=== PATIENT | male | born 1995 | race Caucasian/White ===

== ENCOUNTER 2016-10-24 15:32 | Emergency (ER) | payer MEDICAID, OTHER ==
[~2016-10-24] VITALS: Ht 165.1 cm; Wt 130.0 kg
[~2016-10-24 15:32] MED LIST: OMEP40CA3 PO
[2016-10-24 15:34] VITALS: Ht 165.1 cm; Wt 130.0 kg
--- NOTE | 2016-10-24 17:38 | RADRPT ---
PROCEDURE: Right knee radiographs. CLINICAL INDICATION: Trauma. Right knee pain. TECHNIQUE: Three views. Weight bearing. Frontal, lateral, and oblique. COMPARISON: No prior studies are available for comparison. FINDINGS: There is no fracture or dislocation. There is a joint effusion. The articular surfaces are intact. There is no lytic or blastic lesion. There is no radiopaque foreign body. IMPRESSION: 1. Joint effusion. 2. Otherwise normal images of the right knee. RPTAT: QQ .Vimal Baron MD, MD Date Time Electronically viewed and signed by .Vimal Baron MD, on 10/24/2016 17:37 .R/
[2016-10-24] MEDS ORDERED: IBUP-1542 PO (18:18)
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
[2016-10-24 18:30] VITALS: BP 138/72; PULSE 96; RESP 17; TEMP 99.2
== END 2016-10-24 18:32 | disposition home or self-care (01) ==
LOC: FTE 15:32
DX: S80.11XA Contusion of right lower leg, initial encounter (principal); E66.9 Obesity, unspecified; V18.4XXA Pedal cycle driver injured in noncollision transport accident in traffic accident, initial encounter; Z68.42 Body mass index [BMI] 45.0-49.9, adult
CPT/HCPCS: 73562; Z7502

== ENCOUNTER 2018-06-13 21:36 | Emergency (ER) | END 2018-06-14 01:26 | disposition home or self-care (01) ==

== ENCOUNTER 2018-10-08 20:53 | Emergency (ER) | payer OTHER ==
[~2018-10-08] VITALS: Ht 172.7 cm; Wt 158.8 kg
[~2018-10-08 20:53] MED LIST changes: +CYCL10TA7 PO; +IBUP-1542 PO; +IBUP800T48 PO
[2018-10-08 20:58] VITALS: BP 139/82; PULSE 107; RESP 18; Ht 172.7 cm; Wt 158.8 kg
--- NOTE | 2018-10-08 22:16 | ERD ---
ER Documentation Chief Complaint Chief Complaint states been having palpitation/anxiety since yesterday HPI This is a 23-year-old male who presents emergency department with complaints of palpitations since yesterday. Stated that this happened after smoking weed. Denies family history of heart attack before the age of 50. Denies headache, head injury, loss of consciousness, dizziness, neck pain, neck stiffness, throat pain, difficulty swallowing, difficulty breathing lying flat, shoulder pain, chest pain, back pain, abdominal pain, nausea, vomiting, constipation, diarrhea, urinary symptoms, loss of bowel and bladder control, trauma, injury, falls, difficulty walking due to pain, numbness or tingling sensation, calf pain, recent travel, recent major surgery in the last 3 weeks, calf pain, recent long travel, recent exposure to any illness, recent antibiotic use in the last 3 months, fever, chills, seizures. Past medical history: Denies. Surgical history: Denies. Social: Denies smoking, use of alcoholic beverages, use of illegal drugs. ROS All systems reviewed and are negative except as per history of present illness. Medications Home Meds Active Scripts Hydroxyzine Hcl* (Hydroxyzine Hcl*) 50 Mg Tablet, 50 MG PO Q6H PRN for ANXIETY, #30 TAB Prov:INA OLGUIN 10/08/18 Cyclobenzaprine Hcl* (Cyclobenzaprine Hcl*) 10 Mg Tablet, 10 MG PO TID, #20 TAB Prov:JEANNIE BROWN MD 06/14/18 Ibuprofen* (Motrin*) 800 Mg Tab, 800 MG PO Q6, #30 TAB Prov:JEANNIE BROWN MD 06/14/18 Ibuprofen* (Motrin*) 600 Mg Tab, 600 MG PO Q6, #15 TAB Prov:JEANNIE BROWN MD 10/24/16 Omeprazole* (Prilosec*) 40 Mg Capsule.dr, 40 MG PO DAILY for 10 Days, CAP Prov:NETO SANCHEZ NP 01/21/16 Allergies Allergies: Coded Allergies: No Known Allergy (Unverified , 01/21/16) PMhx/Soc History of Surgery: No Anesthesia Reaction: No Hx Neurological Disorder: No Hx Respiratory Disorders: No Hx Cardiac Disorders: No Hx Psychiatric Problems: No Hx Miscellaneous Medical Probl: Yes (obesity, anxiety, torn ACL) Hx Alcohol Use: No Hx Substance Use: Yes (MARIJUANA) Hx Tobacco Use: No Smoking Status: Never smoker Physical Exam Vitals Vital Signs Date Temp Pulse Resp B/P (MAP) Pulse Ox O2 O2 Flow FiO2 Time Delivery Rate 10/08/18 99.6 107 18 139/82 97 20:58 (101) Physical Exam Const: No acute distress Head: Atraumatic Eyes: Normal Conjunctiva ENT: Normal External Ears, Nose and Mouth. Neck: Full range of motion. No meningismus. Resp: Clear to auscultation bilaterally. No vesicular lesions. Cardio: Regular rate and rhythm, no murmurs. Abd: Soft, non tender, non distended. Normal bowel sounds Skin: No petechiae or rashes Back: No midline or flank tenderness Ext: No cyanosis, or edema Neur: Awake and alert. No neurological deficits.. Psych: Normal Mood and Affect. Denies auditory/visual hallucinations/delusions. Not suicidal. Not homicidal. Has the capacity to decide for himself. Has good support system at home. Results 24 hrs Current Medications Medications Dose Sig/Jessica Start Time Status Last (Trade) Ordered Route PRN Stop Time Admin Dose Reason Admin Aspirin 325 mg ONCE ONCE 10/08/18 DC 10/08/18 (Aspirin) PO 22:30 22:25 10/08/18 22:31 Lorazepam 2 mg ONCE ONCE 10/08/18 DC 10/08/18 (Ativan) PO 22:30 22:25 10/08/18 22:31 Procedures/MDM Diagnostic tests: EKG: Sinus tachycardia with a ventricular rate of 105 bpm. No STEMI. Read by supervising physician. Treatment: Aspirin p.o. Ativan p.o. Re-evaluation: Denies chest pain, palpitations, chest pressure. Denies auditory/visual hallucinations/delusions. Not suicidal. Not homicidal. Has the capacity to decide for himself. Has good support system at home. Stated he feels much better at this time and that he is ready to go home. Patient also stated that he believes that this is an anxiety attack. Differential diagnosis I have low suspicion for acute myocardial infarction, acute coronary syndrome, SVT, thyroid toxicosis, thyroid storm. Final diagnosis: Anxiety. Prescription: Hydroxyzine. Follow-up with PCP in the next 24-48 hours. Come back here in the emergency department for any new symptoms or any worsening symptoms. All questions and concerns were answered. Patient and family members verbalized understanding and agreed with plan of care. Hemodynamically stable on discharge. Departure Diagnosis: Primary Impression: Anxiety Additional Impression: Anxiety attack Condition: Stable Additional Instructions: Follow-up with PCP in the next 24-48 hours. Come back here in the emergency department for any new symptoms or any worsening symptoms. INA OLGUIN Oct 08, 2018 22:16
[2018-10-08] MEDS ORDERED: ASPIRIN 325 MG TAB PO ONE (22:30)
[2018-10-08] MEDS ORDERED: LORAZEPAM 1 MG TAB PO ONE (22:30)
[2018-10-08] MEDS ORDERED: HYDR50TA15 PO (22:41)
== END 2018-10-08 23:07 | disposition home or self-care (01) ==
LOC: FTE 20:53
DX: F41.9 Anxiety disorder, unspecified (principal); E66.9 Obesity, unspecified; Z68.43 Body mass index [BMI] 50.0-59.9, adult
CPT/HCPCS: 93005; Z7502; Z7610